=== PATIENT | male | born 1980 | race African-American/Black ===

== ENCOUNTER 2023-02-11 14:26 | Emergency (ER) | payer OTHER ==
[~2023-02-11] VITALS: Ht 170.2 cm; Wt 150.0 kg
[2023-02-11 14:39] VITALS: BP 157/79; TEMP 98.8; O2SAT 99
[2023-02-11 14:50] VITALS: PULSE 60; RESP 20
[2023-02-11 18:42] LABS: HEMOGLOBIN. 13.1 g/dL (14.0-18.0); MEAN CORPUSCULAR HEMOGLOBIN 25.6 pg (28.0-32.0); MEAN CORPUSCULAR HGB CONC 32.8 g/dL (31.0-37.0); PLATELET 211 x1000/uL (130-400); RED BLOOD CELL COUNT 5.12 mill/uL (4.7-6.1); RED CELL DISTRIBUTION WIDTH 15.5 % (11.6-14.6); WHITE BLOOD COUNT 11.7 x1000/uL (4.5-11.0)
[2023-02-11 18:46] LABS: DIFFERENTIAL COMMENT 1
[2023-02-11 18:49] LABS: CHLORIDE 106 mEq/L (98-107); INDEX HEMOLYSI 1 (1-3); INDEX ICTERIC 1 (1-4); INDEX LIPEMIC 1 (1-3); POTASSIUM 3.9 mEq/L (3.5-5.1); SODIUM 137 mEq/L (136-145)
[2023-02-11 18:59] LABS: ALANINE AMINOTRANSFERASE 46 IU/L (13-61); ALBUMIN 3.8 g/dL (3.4-5.0); ASPARTATE AMINOTRANSFERASE 30 IU/L (15-37); BILIRUBIN TOTAL 0.6 mg/dL (0.1-1.0); CARBON DIOXIDE 27 mEq/L (21-32); CREATININE 0.9 mg/dL (0.6-1.3); GLUCOSE 150 mg/dL (70-105); PROTEIN TOTAL 8.2 g/dL (6.0-8.3); UREA NITROGEN BLOOD 8 mg/dL (7-21)
[2023-02-11 19:30] LABS: MICROCYTOSIS 1+; PLATELET ESTIMATE NORMAL
[2023-02-11] MEDS ORDERED: IBUPROFEN 600MG TABLET PO ONE (22:15)
== END 2023-02-11 22:20 | disposition left against medical advice (07) ==
LOC: ER 15:20
DX: N20.0 Calculus of kidney (principal)
CPT/HCPCS: 36415; 74176; 80053; 85025; 99284